=== PATIENT | female | born 1950 | race Caucasian/White ===

== ENCOUNTER 2018-12-31 19:28 | Emergency (ER) | payer OTHER, SELFPAY ==
--- NOTE | 2018-12-31 20:59 | Emergency Department Report ---
Blank Doc - Documentation Documentation: reports left hip pain. Reports Pain 04/07. New pain started 1 week ago and no trauma Previous h/o pain both hip and other joints. No fever or chills No previous xray done PCP- [facility] on [address] [facility] [place] X[facility]
--- NOTE | 2018-12-31 21:26 | XRay Report ---
LEFT HIP 2 VIEWS INDICATION / CLINICAL INFORMATION: Left hip pain and limping COMPARISON: None available. FINDINGS: BONES / JOINT(S): The hip and SI joint spaces are well-maintained. There is mild to moderate lower ary mbar spondylosis. I see no evidence of fracture, dislocation or destructive lesion. SOFT TISSUES: No significant abnormality. ADDITIONAL FINDINGS: None. IMPRESSION: No acute abnormality. Signer Name: Oneil Ibarra MD Signed: 12/31/2018 9:22 PM Workstation Name: [id number]
[2019-01-01] MEDS ORDERED: PEPCID PO ONE (00:20)
[2019-01-01] MEDS ORDERED: TYLENOL PO ONE (00:21)
[2019-01-01] MEDS ORDERED: ZOFRAN ODT PO ONE (00:21)
[2019-01-01] MEDS ORDERED: NEURONTIN PO ONE (00:21)
--- NOTE | 2019-01-01 00:24 | Emergency Department Report ---
ED Extremity Problem HPI - General Chief complaint: Extremity Injury, Lower Stated complaint: LEFT HIP AND LEG PAIN Time Seen by Provider: 12/31/18 20:54 Source: patient Mode of arrival: Ambulatory Limitations: No Limitations - History of Present Illness Initial comments: Patient is a 68-year-old -Thai female with a history of hypertension, hyperlipidemia and fno-[id number]-[id number] diabetes and chronic low back pain who presents to the ED with a complaint of acute exacerbation of her chronic low back pain that radiates to her left hip and left leg for the last 1 week, and it got worse in the last 2 days. Patient states that she is currently on naproxen 500 mg twice a day as needed for pain, and also takes Flexeril 10 mg every 8 hours as needed for muscle spasm. Patient states that the pain has worsened and that she has been unable to sleep because of pain patient denies dysuria, urinary frequency and urgency, hematuria, abdominal pain, chest pain, shortness of breath, numbness and tingling, weakness of lower extremities, urinary or bowel incontinence, dizziness, heavy lifting, fall, traumatic injury or fever and chills. MD Complaint: extremity pain (left hip), joint paint (left hip) -: Sudden, week(s) (1) Location: left (hip), lower extremity (left hip) History of Same: Yes -: Yes myalgia, Yes arthralgia, No fever, No associated dyspnea, No associated chest pain Radiation: distal Severity scale (0 -10): 7 Quality: aching, sharp Consistency: constant Improves with: nothing Worsens with: weight bearing, walking, exertion, palpation Associated Symptoms: denies other symptoms, arthralgias. denies: chest pain, shortness of breath, fever, myalgias - Related Data Home Medications Medication Instructions Recorded Confirmed Last Taken Aspirin 81 mg PO QDAY 04/16/16 04/16/16 Unknown AtorvaSTATin [Lipitor] 40 mg PO QDAY 04/16/16 04/16/16 Unknown Om3/Dha/Epa/Cod Liver Oil/A/D3 1 each PO QDAY 04/16/16 04/16/16 Unknown [Cod Liver Oil Softgel] metFORMIN [Glucophage] 500 mg PO BID 04/16/16 04/16/16 Unknown Previous Rx's Medication Instructions Recorded Last Taken Type Meclizine [Antivert] 25 mg PO Q8H PRN #20 tablet 04/17/16 Unknown Rx Gabapentin [Neurontin] 300 mg PO QHS PRN #30 cap 01/01/19 Unknown Rx Ranitidine HCl [Zantac] 150 mg PO Q12H #30 tablet 01/01/19 Unknown Rx predniSONE [Deltasone] 40 mg PO QDAY #10 tab 01/01/19 Unknown Rx Allergies Allergy/AdvReac Type Severity Reaction Status Date / Time No Known Allergies Allergy Verified 04/16/16 08:24 ED Review of Systems ROS: Stated complaint: LEFT HIP AND LEG PAIN Other details as noted in HPI Constitutional: denies: chills, fever Eyes: denies: eye pain, eye discharge, vision change ENT: denies: ear pain, throat pain Respiratory: denies: cough, shortness of breath, wheezing Cardiovascular: denies: chest pain, palpitations Endocrine: no symptoms reported Gastrointestinal: denies: abdominal pain, nausea, diarrhea Genitourinary: denies: urgency, dysuria, discharge Musculoskeletal: back pain, arthralgia (left hip and leg), myalgia. denies: joint swelling Skin: denies: rash, lesions Neurological: denies: headache, weakness, paresthesias Psychiatric: denies: anxiety, depression Hematological/Lymphatic: denies: easy bleeding, easy bruising ED Past Medical Hx - Past Medical History Hx Hypertension: Yes Hx Heart Attack/AMI: No Hx Congestive Heart Failure: No Hx Diabetes: Yes Hx Deep Vein Thrombosis: No Hx GERD: No Hx Liver Disease: No Hx Arthritis: Yes Hx Headaches / Migraines: Yes Hx Seizures: No Hx Dementia: No Hx HIV: No - Surgical History Past Surgical History?: Yes Hx Coronary Stent: No Hx Open Heart Surgery: No Hx Pacemaker: No Hx Internal Defibrillator: No Hx Cholecystectomy: No Hx Appendectomy: No Hx Breast Surgery: No Additional Surgical History: thyroidectomy - Social History Smoking Status: Never Smoker Substance Use Type: None - Medications Home Medications: Home Medications Medication Instructions Recorded Confirmed Last Taken Type Aspirin 81 mg PO QDAY 04/16/16 04/16/16 Unknown History AtorvaSTATin [Lipitor] 40 mg PO QDAY 04/16/16 04/16/16 Unknown History Om3/Dha/Epa/Cod Liver Oil/A/D3 1 each PO QDAY 04/16/16 04/16/16 Unknown History [Cod Liver Oil Softgel] metFORMIN [Glucophage] 500 mg PO BID 04/16/16 04/16/16 Unknown History Meclizine [Antivert] 25 mg PO Q8H PRN #20 tablet 04/17/16 Unknown Rx Gabapentin [Neurontin] 300 mg PO QHS PRN #30 cap 01/01/19 Unknown Rx Ranitidine HCl [Zantac] 150 mg PO Q12H #30 tablet 01/01/19 Unknown Rx predniSONE [Deltasone] 40 mg PO QDAY #10 tab 01/01/19 Unknown Rx ED Physical Exam - General Limitations: No Limitations General appearance: alert, in no apparent distress - Head Head exam: Present: atraumatic, normocephalic, normal inspection - Eye Eye exam: Present: normal appearance, PERRL, EOMI. Absent: scleral icterus, conjunctival injection, nystagmus, periorbital swelling Pupils: Present: normal accommodation - ENT ENT exam: Present: normal exam, normal orophraynx, mucous membranes moist, TM's normal bilaterally, normal external ear exam - Neck Neck exam: Present: normal inspection, full ROM - Respiratory Respiratory exam: Present: normal lung sounds bilaterally. Absent: respiratory distress, wheezes, rales, rhonchi, chest wall tenderness, prolonged expiratory - Cardiovascular Cardiovascular Exam: Present: regular rate, normal rhythm. Absent: systolic murmur, diastolic murmur, rubs, gallop - GI/Abdominal GI/Abdominal exam: Present: soft, normal bowel sounds. Absent: tenderness, guarding, rebound, hyperactive bowel sounds, hypoactive bowel sounds, organomegaly, bruit, pulsatile mass, hernia - Rectal Rectal exam: Present: deferred - Extremities Exam Extremities exam: Present: normal inspection, tenderness (left hip), normal capillary refill. Absent: full ROM (Limited ROM due to left hip pain), joint swelling, calf tenderness - Back Exam Back exam: Present: normal inspection, tenderness (palpable paraspinal musculoskeletal tenderness ), muscle spasm, paraspinal tenderness (lumbosacral paraspinal musculoskeletal tenderness). Absent: CVA tenderness (L) - Neurological Exam Neurological exam: Present: alert, oriented X3, CN II-XII intact, normal gait, reflexes normal - Psychiatric Psychiatric exam: Present: normal affect, normal mood - Skin Skin exam: Present: warm, dry, intact, normal color. Absent: rash ED Course Vital Signs 12/31/18 19:41 Temperature 98.5 F Pulse Rate 103 H Respiratory 18 Rate Blood Pressure 142/79 O2 Sat by Pulse 98 Oximetry - Reevaluation(s) Reevaluation #1: 01/01/19 00:24 Patient is alert and oriented 3 and is not in distress but in pain. Left hip x-ray shows no acute fractures or subluxations. The patient's symptoms are likely due to sciatica from chronic low back pain. The symptoms are also likely due to left hip degenerative joint disease. The patient is currently on naproxen 500 mg twice a day as needed for pain, and on Flexeril 10 mg every 8 hours as needed for muscle spasm. Patient was treated in the ED for pain and discharged home on medications for pain. Patient is advised to follow-up with her primary care physician in 3-5 days for reevaluation. Patient was advised to return to the ED immediately if symptoms get worse. ED Medical Decision Making - Radiology Data Radiology results: report reviewed, image reviewed Left hip x-ray: No acute fractures - Medical Decision Making Patient is alert and oriented 3 and is not in distress but in pain. Left hip x-ray shows no acute fractures or subluxations. The patient's symptoms are likely due to sciatica from chronic low back pain. The symptoms are also likely due to left hip degenerative joint disease. The patient is currently on naproxen 500 mg twice a day as needed for pain, and on Flexeril 10 mg every 8 hours as needed for muscle spasm. Patient was treated in the ED for pain and discharged home on medications for pain. Patient is advised to follow-up with her primary care physician in 3-5 days for reevaluation. Patient was advised to return to the ED immediately if symptoms get worse. - Differential Diagnosis Left hip osteoathritis; Chronic low back pain with sciatica; Muscle strain Critical care attestation.: If time is entered above; I have spent that time in minutes in the direct care of this critically ill patient, excluding procedure time. ED Disposition Clinical Impression: Chronic low back pain with left-sided sciatica Qualifiers: Back pain laterality: left Qualified Code(s): M54.42 - Lumbago with sciatica, left side; G89.29 - Other chronic pain Osteoarthritis of left hip Qualifiers: Osteoarthritis type: primary Qualified Code(s): M16.12 - Unilateral primary osteoarthritis, left hip Disposition: TO HOME OR SELFCARE Is pt being admited?: No Does the pt Need Aspirin: No Condition: Stable Instructions: Arthralgia (ED), Lumbar Radiculopathy (ED), Sciatica (ED) Additional Instructions: Take medications with food, drink plenty of fluids and follow up with your primary care physician in 5-7 days for reevaluation. Return to the ED immediately if symptoms get worse. Prescriptions: Gabapentin [Neurontin] 300 mg PO QHS PRN #30 cap PRN Reason: Pain , Severe (7-10) predniSONE [Deltasone] 40 mg PO QDAY #10 tab Ranitidine HCl [Zantac] 150 mg PO Q12H #30 tablet Referrals: [facility] [Outside] - 3-5 Days Time of Disposition: 00:33 Print Language: KAZAKH
[2019-01-01 00:46] VITALS: BP 152/91
== END 2019-01-01 00:45 | disposition home or self-care (01) ==
LOC: ED 19:28
DX: M54.42 Lumbago with sciatica, left side (principal); M16.12 Unilateral primary osteoarthritis, left hip; G89.29 Other chronic pain; I10 Essential (primary) hypertension; E11.9 Type 2 diabetes mellitus without complications; M19.90 Unspecified osteoarthritis, unspecified site; G43.909 Migraine, unspecified, not intractable, without status migrainosus; Z90.89 Acquired absence of other organs; Z79.899 Other long term (current) drug therapy
CPT/HCPCS: Q0162

== ENCOUNTER 2021-08-17 12:04 | Emergency (ER) | payer MEDICARE, MEDICAID ==
[2021-08-17 12:35] VITALS: BP 149/71
--- NOTE | 2021-08-17 14:17 | Emergency Department Report ---
ED Neck Pain/Injury HPI - General Chief Complaint: Neck Pain/Injury Stated Complaint: NECK PAIN Time Seen by Provider: 08/17/21 13:21 Mode of arrival: Ambulatory Limitations: No Limitations - History of Present Illness Initial Comments: 71-year-old female presents to the emergency room complaining of left side neck pain that started on Thursday and is gradually going down her left arm. Patient states that she has been using hot compresses. She took Tylenol on day 1. States that she has a headache to both temples. She denies any injury. She denies any fever chills no nausea no vomiting. 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 She is currently with a history of diabetes hypercholesterolemia. She states she is compliant with her medication. She has a primary care provider at [place]. She has not tried any ibuprofen. Blood pressure in triage was 149/71 heart rate 90 99% on room air temp 98.1. MD Complaint: neck pain Onset/Timin -: days(s) Radiation: left lateral, left shoulder, left upper extremity Severity scale (0 -10): 7 Quality: aching Consistency: intermittent Improves With: none Worsens With: none Context: unknown Associated Symptoms: headache Treatments Prior to Arrival: none - Related Data Home Medications Medication Instructions Recorded Confirmed Last Taken Aspirin 81 mg PO QDAY 04/16/16 04/16/16 Unknown AtorvaSTATin [Lipitor] 40 mg PO QDAY 04/16/16 04/16/16 Unknown Om3/Dha/Epa/Cod Liver Oil/A/D3 1 each PO QDAY 04/16/16 04/16/16 Unknown [Cod Liver Oil Softgel] metFORMIN [Glucophage] 500 mg PO BID 04/16/16 04/16/16 Unknown Previous Rx's Medication Instructions Recorded Last Taken Type Meclizine [Antivert] 25 mg PO Q8H PRN #20 tablet 04/17/16 Unknown Rx Gabapentin 300 mg PO QHS PRN #30 cap 01/01/19 Unknown Rx predniSONE [Deltasone] 40 mg PO QDAY #10 tab 01/01/19 Unknown Rx raNITIdine HCl [Zantac] 150 mg PO Q12H #30 tablet 01/01/19 Unknown Rx Ibuprofen [Motrin 600 MG tab] 600 mg PO Q8H PRN #15 tablet 08/17/21 Unknown Rx Allergies Allergy/AdvReac Type Severity Reaction Status Date / Time No Known Allergies Allergy Verified 08/17/21 12:30 ED Review of Systems ROS: Stated complaint: NECK PAIN Other details as noted in HPI Comment: All other systems reviewed and negative ED Past Medical Hx - Past Medical History Hx Hypertension: Yes Hx Heart Attack/AMI: No Hx Congestive Heart Failure: No Hx Diabetes: Yes Hx Deep Vein Thrombosis: No Hx GERD: No Hx Liver Disease: No Hx Arthritis: Yes Hx Headaches / Migraines: Yes Hx Seizures: No Hx Dementia: No Hx HIV: No - Surgical History Hx Coronary Stent: No Hx Open Heart Surgery: No Hx Pacemaker: No Hx Internal Defibrillator: No Hx Cholecystectomy: No Hx Appendectomy: No Hx Breast Surgery: No Additional Surgical History: thyroidectomy - Social History Smoking Status: Never Smoker Substance Use Type: None - Medications Home Medications: Home Medications Medication Instructions Recorded Confirmed Last Taken Type Aspirin 81 mg PO QDAY 04/16/16 04/16/16 Unknown History AtorvaSTATin [Lipitor] 40 mg PO QDAY 04/16/16 04/16/16 Unknown History Om3/Dha/Epa/Cod Liver Oil/A/D3 1 each PO QDAY 04/16/16 04/16/16 Unknown History [Cod Liver Oil Softgel] metFORMIN [Glucophage] 500 mg PO BID 04/16/16 04/16/16 Unknown History Meclizine [Antivert] 25 mg PO Q8H PRN #20 tablet 04/17/16 Unknown Rx Gabapentin 300 mg PO QHS PRN #30 cap 01/01/19 Unknown Rx predniSONE [Deltasone] 40 mg PO QDAY #10 tab 01/01/19 Unknown Rx raNITIdine HCl [Zantac] 150 mg PO Q12H #30 tablet 01/01/19 Unknown Rx Ibuprofen [Motrin 600 MG tab] 600 mg PO Q8H PRN #15 tablet 08/17/21 Unknown Rx ED Physical Exam - General Limitations: No Limitations General appearance: alert, in no apparent distress - Head Head exam: Present: atraumatic, normocephalic, normal inspection - Eye Eye exam: Present: normal appearance, PERRL, EOMI - ENT ENT exam: Present: mucous membranes dry - Neck Neck exam: Present: tenderness (Left trapeze), full ROM - Respiratory Respiratory exam: Present: normal lung sounds bilaterally. Absent: respiratory distress, accessory muscle use - Cardiovascular Cardiovascular Exam: Present: regular rate - Expanded Upper Extremity Exam Left Shoulder Exam: Present: full ROM, tenderness. Absent: swelling Upper Arm exam: Present: normal inspection, full ROM, tenderness Elbow exam: Present: normal inspection, full ROM Forearm Wrist exam: Present: normal inspection, full ROM Neurosensory exam: Present: 2-point discrimination Vascular: Present: normal capillary refill - Back Exam Back exam: Present: normal inspection - Neurological Exam Neurological exam: Present: alert, oriented X3, normal gait - Psychiatric Psychiatric exam: Present: normal affect, normal mood - Skin Skin exam: Present: warm, dry, intact, normal color. Absent: rash ED Course Vital Signs 08/17/21 08/17/21 12:30 12:34 Temperature 98.1 F Pulse Rate 90 90 Respiratory 18 Rate Blood Pressure 149/71 [Right] O2 Sat by Pulse 99 99 Oximetry ED Medical Decision Making - Medical Decision Making 71-year-old female presents to the emergency room complaining of left side neck pain that started on Thursday and is gradually going down her left arm. Patient states that she has been using hot compresses. She took Tylenol on day 1. States that she has a headache to both temples. She denies any injury. She denies any fever chills no nausea no vomiting. 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 She is currently with a history of diabetes hypercholesterolemia. She states she is compliant with her medication. She has a primary care provider at [place]. She has not tried any ibuprofen. Blood pressure in triage was 149/71 heart rate 90 99% on room air temp 98.1. Recommend ibuprofen 600 to 800 mg 3 times a day continue with warm compress follow-up with her primary care provider. Critical care attestation.: If time is entered above; I have spent that time in minutes in the direct care of this critically ill patient, excluding procedure time. ED Disposition Clinical Impression: Strain of cervical portion of left trapezius muscle Disposition: HOME / SELF CARE / HOMELESS Is pt being admited?: No Does the pt Need Aspirin: No Condition: Stable Instructions: Muscle Strain, [id number] Additional Instructions: Please try ibuprofen as prescribed. Increase your fluid intake venture diet as tolerated. Follow-up with your primary care provider. Prescriptions: Ibuprofen [Motrin 600 MG tab] 600 mg PO Q8H PRN #15 tablet PRN Reason: Pain Referrals: [facility] [Provider Group] - 3-5 Days Time of Disposition: 14:24
== END 2021-08-17 16:02 | disposition home or self-care (01) ==
LOC: ED 12:04
DX: S16.1XXA Strain of muscle, fascia and tendon at neck level, initial encounter (principal); I10 Essential (primary) hypertension; E11.9 Type 2 diabetes mellitus without complications; M19.90 Unspecified osteoarthritis, unspecified site; G43.909 Migraine, unspecified, not intractable, without status migrainosus; Z98.890 Other specified postprocedural states; X58.XXXA Exposure to other specified factors, initial encounter; Y93.89 Activity, other specified; Y92.89 Other specified places as the place of occurrence of the external cause; Y99.8 Other external cause status
CPT/HCPCS: 99282